=== PATIENT | male | born 1960 | race Two or more races ===

== ENCOUNTER 2016-04-29 09:54 | Emergency (ER) | payer OTHER ==
[2016-04-29 10:27] VITALS: BMI 27.4
--- NOTE | 2016-04-29 10:48 | PDOC ---
History of Present Illness - General History Source: Patient Exam Limitations: No Limitations - History of Present Illness Initial Comments: 04/29/16 11:23 The patient is a 56 year old male with significant past medical history of hypertension who presents to the emergency department with intermittent cough and shortness of breath for the last 3 months. The patient recently came to [place] 1 month ago from the [place]. He has been experiencing a cough for the last 3 months and states he [place] the [place] for the cough but he does not remember the name and the cough persists. He reports intermittent fever over the last month, Tmax ~100F but this gets better on its own. The patient reports some associated shortness of breath at times but denies any dyspnea on exertion or orthopnea. He denies any chest pain or chest tightness. The patient has an associated upper back pain that is dull in nature and worse when he coughs. He denies abdominal pain, nausea, or vomiting. He denies any sick contacts or chills. <Saida Nation - Last Filed: 04/29/16 11:22> <Durga Fontana - Last Filed: 04/29/16 13:43> - General Chief Complaint: Respiratory Stated Complaint: LOWER BACK PAIN, SOB Time Seen by Provider: 04/29/16 10:47 Past History <Saida Nation - Last Filed: 04/29/16 11:22> - Past Medical History HTN: Yes - Psycho/Social/Smoking Cessation Hx Suicidal Ideation: No Smoking History: Never smoked Hx Alcohol Use: No Drug/Substance Use Hx: No Substance Use Type: None <Durga Fontana - Last Filed: 04/29/16 13:43> - Past Medical History Allergies/Adverse Reactions: Allergies Allergy/AdvReac Type Severity Reaction Status Date / Time No Known Allergies Allergy Verified 04/29/16 10:27 Home Medications: Ambulatory Orders Benzonatate [Tessalon Pearls -] 100 mg PO TID #90 capsule 04/29/16 Desloratadine/Pseudoephedrine [Clarinex-D 12 Hour Tablet] 1 each PO BID #60 tbmp.12hr 04/29/16 Review of Systems - Review of Systems Able to Perform ROS?: Yes Comments:: 04/29/16 11:23 GENERAL/CONSTITUTIONAL: No fever or chills. No weakness. HEAD, EYES, EARS, NOSE AND THROAT: No change in vision. No ear pain or discharge. No sore throat. CARDIOVASCULAR: No chest pain or shortness of breath. RESPIRATORY: +Cough. No wheezing or hemoptysis. GASTROINTESTINAL: No nausea, vomiting, diarrhea or constipation. GENITOURINARY: No dysuria, frequency, or change in urination. MUSCULOSKELETAL: No joint or muscle swelling or pain. No neck or back pain. SKIN: No rash NEUROLOGIC: No headache, vertigo, loss of consciousness, or change in strength/ sensation. ENDOCRINE: No increased thirst. No abnormal weight change. HEMATOLOGIC/LYMPHATIC: No anemia, easy bleeding, or history of blood clots. ALLERGIC/IMMUNOLOGIC: No hives or skin allergy. <Saida Nation - Last Filed: 04/29/16 11:22> *Physical Exam - Vital Signs Last Vital Signs Temp Pulse Resp BP Pulse Ox 98.0 F 72 20 167/103 96 04/29/16 10:24 04/29/16 10:24 04/29/16 10:24 04/29/16 10:24 04/29/16 11:17 - Physical Exam Comments: 04/29/16 11:23 GENERAL: Awake, alert, and fully oriented, in no acute distress HEAD: No signs of trauma EYES: PERRLA, EOMI, sclera anicteric, conjunctiva clear ENT: Auricles normal inspection, hearing grossly normal, nares patent, oropharynx clear without exudates. Moist mucosa NECK: Normal ROM, supple, no lymphadenopathy, JVD, or masses LUNGS: Breath sounds equal, clear to auscultation bilaterally. No wheezes, and no crackles HEART: Regular rate and rhythm, normal S1 and S2, no murmurs, rubs or gallops ABDOMEN: Soft, nontender, normoactive bowel sounds. No guarding, no rebound. No masses EXTREMITIES: Normal range of motion, no edema. No clubbing or cyanosis. No cords, erythema, or tenderness NEUROLOGICAL: Cranial nerves II through XII grossly intact. Normal speech, normal gait SKIN: Warm, Dry, normal turgor, no rashes or lesions noted. <Saida Nation - Last Filed: 04/29/16 11:22> - Vital Signs Last Vital Signs Temp Pulse Resp BP Pulse Ox 98.0 F 72 20 167/103 96 04/29/16 10:24 04/29/16 10:24 04/29/16 10:24 04/29/16 10:24 04/29/16 10:24 <Durga Fontana - Last Filed: 04/29/16 13:43> ED Treatment Course - LABORATORY CBC & Chemistry Diagram: 04/29/16 11:30 04/29/16 11:30 <Durga Fontana - Last Filed: 04/29/16 13:43> *DC/Admit/Observation/Transfer - Attestations Scribe Attestion: 04/29/16 11:23 Documentation prepared by Saida Nation, acting as medical associate for Durga Fontana DO. <Saida Nation - Last Filed: 04/29/16 11:22> - Discharge Dispostion Admit: No - Attestations Physician Attestion: 04/29/16 13:33 I, Dr. Durga Fontana, attest that this document has been prepared under my direction and personally reviewed by me in its entirety. I further attest, that it accurately reflects all work, treatment, procedures and medical decision -making performed by me. <Durga Fontana - Last Filed: 04/29/16 13:43> Diagnosis at time of Disposition: Chronic cough, Pulmonary granuloma - Discharge Dispostion Disposition: HOME Condition at time of disposition: Good - Prescriptions Prescriptions: Desloratadine/Pseudoephedrine [Clarinex-D 12 Hour Tablet] 1 each PO BID #60 tbmp.12hr Benzonatate [Tessalon Pearls -] 100 mg PO TID #90 capsule - Referrals Referrals: Nando Self MD [Staff Physician] - - Patient Instructions Printed Discharge Instructions: DI for Cough -- Adult Additional Instructions: Josiah- I am sorry that you are coughing all the time. You have an old granuloma in the lower right lung, but it is not clear what is making you cough. It could be anything even allergies. I am referring you to a [facility], [Lung Specialist]. Please see him first and after he takes a look at you he can tell you what he thinks and what you should do next. I am prescribing something to help with the cough, it should supress it. Return to us if any problems otherwise follow up with Dr Self. Best- Dr. Durga Fontana
[2016-04-29 11:36] LABS: BASOPHIL 0.9 % (0-2.0); MCH 29.1 pg (25.7-33.7); MCHC 33.1 g/dl (32.0-35.9); MEAN CELL VOLUME 87.9 fl (80-96); MEAN PLT VOLUME 6.9 fl (7.5-11.1); NEUTROPHILS 51.3 % (42.8-82.8); PLATELET COUNT 269 K/MM3 (134-434); RDW 13.6 % (11.9-15.9); WHITE BLOOD COUNT 4.3 K/mm3 (4.0-10.0)
[2016-04-29 12:12] LABS: ANION GAP 8 (8-16); CALCIUM 9.1 mg/dL (8.5-10.1); CO2 30 mmol/L (21-32); GLUCOSE,RANDOM 79 mg/dL (74-106); SGOT/AST 25 U/L (15-37); SGPT/ALT 44 U/L (12-78)
[2016-04-29 12:14] LABS: ALK PHOS 88 U/L (45-117); BILIRUBIN,TOTAL 0.4 mg/dL (0.2-1.0); CREATININE 0.9 mg/dL (0.7-1.3); TOT PROT 7.1 g/dl (6.4-8.2)
[2016-04-29 13:59] VITALS: BP 139/89; PULSE 62; TEMP 98.2
== END 2016-04-29 14:02 | disposition home or self-care (01) ==
LOC: JER 09:54
DX: J84.10 Pulmonary fibrosis, unspecified (principal); R05 Cough; I10 Essential (primary) hypertension
CPT/HCPCS: 36415; 71010-TC; 71020-TC; 80053; 85025; 87040; 87186; 99283-25